=== PATIENT | male | born 2005 | race Caucasian/White ===

== ENCOUNTER 2024-10-17 23:21 | Emergency (ER) | payer OTHER, MEDICAID, SELFPAY ==
--- NOTE | ~2024-10-17 | US_ITS ---
CLINICAL HISTORY: PAIN AND SWELLING US Scrotum with Doppler Comparison: None provided Findings: Right testicle normal echotexture, 4.6 x 2.3 x 3.6 cm. Left testicle normal echotexture, 5.2 x 2.5 x 2.6 cm. Normal color flow and arterial/venous spectral tracing of the right testicle. Mild asymmetric hyperemia of the left testicle Normal epididymides. Small complex left hydrocele IMPRESSION: Asymmetric hyperemia of the left testicle concerning for possible orchitis. This document has been electronically signed by: Bala Gonzalez MD, PHD on 10/18/2024 01:52:25
[2024-10-17 23:32] VITALS: BP 142/90; PULSE 106; O2SAT 99
[2024-10-17 23:40] VITALS: BP 124/87; PULSE 90; RESP 16; TEMP 36.7; O2SAT 98; BMI 28.4
--- NOTE | 2024-10-17 23:48 | ED.MALEGU ---
HPI - Male Genitourinary General Chief complaint: Urogenital-Male Stated complaint: Testicular Pain Time Seen by Provider: 10/17/24 23:37 Source: patient and family Mode of arrival: ambulatory Limitations: no limitations History of Present Illness ED Provider: Francois JULIAN HPI Narrative: The patient is a 18-year-old male presenting to the ED for evaluation of atraumatic testicular pain which began yesterday. The patient denies associated fever/chills, nausea, vomiting, erythema, penile lesions, or urethral discharge. The patient reports he is not sexually active and never has been. The patient denies masturbation or other manipulation of the penis or testicles prior to onset of symptoms. The patient denies similar previous symptoms. Patient reports he noted the left testicle was hanging lower than the right which is not normal for him. Patient reported symptoms to his mother who activated EMS for transport to the ED. Related Data Previous Rx's ?Medication ?Instructions ?Recorded acetaminophen 500 mg capsule 1,000 mg (2 x 500 mg) PO .q8 PRN 10/18/24 fever or pain #30 caps ibuprofen 600 mg tablet 600 mg PO Q8H PRN fever or pain 10/18/24 #30 tabs Allergies Allergy/AdvReac Type Severity Reaction Status Date / Time No Known Allergies Allergy Unverified 10/17/24 23:41 Review of Systems Review of Systems: Yes all other systems are reviewed and are negative PMFSH Social History Social History Advance Directives: No Advance Directives Information Provided: Yes Physical Exam Vital Signs: Vital Signs: Last Vital Signs Temp 98.1 F 10/17/24 23:40 Pulse 90 10/17/24 23:40 Resp 16 10/17/24 23:40 BP 124/87 10/17/24 23:40 Pulse Ox 98 10/17/24 23:40 O2 Del Method Room Air 10/17/24 23:40 BMI result Body Mass Index 28.4 CONSTITUTIONAL: The patient appears non-toxic, well nourished and in no acute distress. Vital signs as documented. HEAD: Atraumatic, normocephalic. EYES: EOMs grossly intact, pupils equal, conjunctiva clear, no exudate. ENT: Nares patent, no discharge. Airway patent, no audible stridor, visible mucosa is pink and moist without noted lesions. NECK: trachea is midline, no obvious masses or gross abnormalities. CHEST: Symmetric movement, normal appearance. LUNGS: Non-labored work of breathing. CARDIAC: No evidence of hypoperfusion. ABDOMEN: Nondistended, no obvious injury. : There is mild swelling noted of the left testicle and epididymis, with mild tenderness, no associated scrotal erythema, no evidence of abscess. No penile lesions or urethral drainage noted. There is no inguinal mass or tenderness appreciated bilaterally. EXTREMITIES: Moves all extremities spontaneously without reported pain. No obvious injury or deformity noted. NEURO: Alert and oriented x3, CN II-XII appear grossly intact. Cerebellar Functioning grossly intact. Speech clear and appropriate. SKIN: Warm, dry, color appropriate. No rashes or lesions noted. Medical Decision Making Medical Decision Making MDM Narrative: 12:23 AM 10/18/2024 (Bryan JULIAN): Patient is a 18-year-old non sexually active male presenting to the ED for evaluation of atraumatic onset of scrotal pain and tenderness which began on . The patient reports swelling of the left testicle but also reports some pain in the right testicle. The patient in the ED is nontoxic appearing, appears in no acute distress. Exam reveals mild swelling of the left testicle and supporting structures, consistent with hydrocele versus varicocele. The patient has no other acute findings on exam. The patient will be sent for urinalysis and we will obtain testicular ultrasound to evaluate for torsion versus hydrocele versus varicocele. 2:10 AM 10/18/2024 (Bryan JULIAN): The patient's ultrasound has resulted and shows no testicular torsion. There is a small complex left hydrocele. There was also asymmetric hyperemia of the left testicle concerning for possible orchitis. The patient has no fever, no dysuria, urinalysis is negative for infection or other acute finding. Patient is not sexually active, no concern for STI. Given the patient's reassuring exam, lack of sexual activity, and no UTI on urinalysis, bacterial orchitis is very unlikely and patient is likely suffering from left hydrocele with possible viral orchitis. Patient will be treated with supportive care, and discharged to follow up with PCP. Admission/Observation Consideration of admission/observation: Escalation of care including admission/observation considered Lab Data Labs: Lab Results 10/18/24 Range/Units 00:44 Urine Color Yellow Urine Appearance Clear Urine pH 7.0 (5.0-9.0) Ur Specific [place] <= 1.005 (1.005-1.025) Urine Protein Negative (Neg-Trace) mg/dL Urine Glucose (UA) Negative (Negative) mg/dL Urine Ketones Negative (Negative) mg/dL Urine Blood Negative (Negative) Urine Nitrite Negative (Negative) Ur Leukocyte Esterase Negative (Negative) Radiology Impression Discussion of test interpretation with radiology: I have reviewed the radiologist's reading. Radiologist Impression: CLINICAL HISTORY: PAIN AND SWELLING US Scrotum with Doppler Comparison: None provided Findings: Right testicle normal echotexture, 4.6 x 2.3 x 3.6 cm. Left testicle normal echotexture, 5.2 x 2.5 x 2.6 cm. Normal color flow and arterial/venous spectral tracing of the right testicle. Mild asymmetric hyperemia of the left testicle Normal epididymides. Small complex left hydrocele IMPRESSION: Asymmetric hyperemia of the left testicle concerning for possible orchitis. This document has been electronically signed by: Bala Gonzalez MD, PHD on 10/18/2024 01:52:25 Discharge Plan Discharge Clinical Impression: Hydrocele, left, Viral orchitis Patient Disposition: Home, Self-Care Instructions: Testicle Pain (ED), Orchitis (ED) Additional Instructions: Thank you for choosing [facility]'s Emergency Department for your care today. At this time there is no indication for admission to the hospital or continued ED observation, and it is safe to discharge you home. Thankfully your ultrasound shows no evidence of torsion, and your urinalysis shows no evidence of a urinary tract infection. Your ultrasound today shows that your testicular pain is likely secondary to a collection of fluid in the vessels supporting your left testicle, known as a hydrocele. Your ultrasound also showed increased blood flow to the left testicle compared to the right, concerning for possible inflammation/infection of your testicle, this is a condition known as orchitis. Based on your history and presentation, as well as your reassuring urinalysis, this orchitis is likely caused by a viral infection and does not require antibiotics. You may take alternating (staggered) doses of ibuprofen 600mg and Tylenol 1000mg every 4 hours as needed for any additional pain. Please wear supportive underwear (briefs instead of boxers), stay well hydrated, and get plenty of rest. Please follow up with your primary care physician for re-evaluation, additional management of your symptoms, and continued preventative care. If you do not have a primary care physician, please call the [facility] at [phone] to establish a new primary care physician. While waiting to establish your new primary care physician, you can call our [facility] at [phone] for non-emergency needs. Please return to the emergency department if you develop a severe or sudden change in your symptoms, a fever over 100.4 that does not improve with Tylenol or Ibuprofen, recurrent vomiting, or any other new or worsening symptoms or concerns. Prescriptions: New acetaminophen 500 mg capsule 1,000 mg PO .q8 PRN (Reason: fever or pain) Qty: 30 0RF ibuprofen 600 mg tablet 600 mg PO Q8H PRN (Reason: fever or pain) Qty: 30 0RF Print Language: Portuguese
[2024-10-18 00:52] LABS: Appearance Urine Clear; Glucose Urine UA Negative (Negative); PH 7.0 (5.0-9.0); Specific Gravity - Urine <= 1.005 (1.005-1.025)
--- OUTSIDE RECORDS SUMMARY | 2024-10-18 01:03 | XMS_ITS | Encounter Summary ---
Author Organization [facility] Address [address] [place] [address] Phone Care Team Providers Care Burnishing Machine Operator Name Role Phone Jess Archer POLITICAL SCIENCE RESEARCH ASSISTANT Primary Care Provider Un available Encounter Details Date Type Department Care Team (Late st Contact Info) Description 11/06/2014 Documentation [facility] [address] [place], [place] [phone] Family Medicine, Physician [address] [place] [address] Social History Tobacco Use Types Packs/Day Years Used Date Smoking Tobacco: Never Assessed Sex and Gender Information Value Date Recorded Sex Assigned at Not on file Legal Sex Male 5:22 PM EDT Gender Identity Not on file Sexual Orientation Not on file documented as of this encounter Plan of Treatment Not on file documented as of this encounter Visit Diagnoses Not on filedocumented in this encounter Care Teams Burnishing Machine Operator Relationship Specialty Start Date End Date Jess Archer NP PCP - General 09/21/16 12/18/23 documented as of this encounter
--- OUTSIDE RECORDS SUMMARY | 2024-10-18 01:03 | XMS_ITS | Encounter Summary ---
Author Organization [facility] Address [address] [place] [address] Phone Care Team Providers Care Nylon Mender Name Role Phone Jess Archer TELE RN Primary Care Provider Un available Encounter Details Date Type Department Care Team (Late st Contact Info) Description 05/10/2011 Documentation [facility] [address] [place], [place] [phone] Family Medicine, Physician [address] [place] [address] Social History Tobacco Use Types Packs/Day Years [...] on filedocumented in this encounter Care Teams Nylon Mender Relationship Specialty Start Date End Date Jess Archer NP PCP - General 09/21/16 12/18/23 documented as of this encounter
--- OUTSIDE RECORDS SUMMARY | 2024-10-18 01:03 | XMS_ITS | Encounter Summary ---
Author Organization [facility] Address [address] [place] [address] Phone Care Team Providers Care Validation Intern Name Role Phone Jess Archer CANDY MAKER HELPER Primary Care Provider Un available Encounter Details Date Type Department Care Team (Late st Contact Info) Description 10/03/2012 Documentation [facility] [address] [place], [place] [phone] Family Medicine, Physician [address] [place] [address] Social History Tobacco Use Types Packs/Day Years [...] on filedocumented in this encounter Care Teams Validation Intern Relationship Specialty Start Date End Date Jess Archer NP PCP - General 09/21/16 12/18/23 documented as of this encounter
--- OUTSIDE RECORDS SUMMARY | 2024-10-18 01:03 | XMS_ITS | Clinical Summary ---
Author Organization [facility] Address [address] [place] [address] Phone Care Team Providers Care Physical Therapist Name Role Phone Unavailable Primary Care Provider Unavailabl e Medications QVAR 80 MCG/ACT inhalerIndicati ons:Asthma, unspecified asthma severity, unspecified whether complicated, unspecified whether persistent INHALE 2 PUFF BY INHALATION ROUTE 2 TIMES EVERY DAY 1 Units 11 7 Active FLUoxetine 20 MG capsule Take by mouth once daily. 0 8 Active guanFACINE 2 MG tablet Take 2 mg by mouth 2 (two) times a day. 1 8 Active haloperidol 2 MG tablet TAKE 1/2 TABLET EVERY MORNING AND 1 TABLET TWICE DAILY 0 8 Active VYVANSE 50 MG capsule Take 50 mg by mouth once daily. 0 8 Active Pediatric Multivitamins-F l (MULTIVITAMIN/F LUORIDE) 1 MG chewable tablet Chew. 7 Active traZODone 50 MG tablet Take 50 mg by mouth nightly. 1 8 Active VYVANSE 40 MG capsule Take 40 mg by mouth once daily. 0 8 Active [place]-3 Fatty Acids (FISH OIL CONCENTRATE) 1000 MG capsule Take by mouth. 7 Active albuterol (2.5 MG/3ML) 0.083% nebulizer solution ALBUTEROL SULFATE; inhale 3 milliliter by NEBULIZATION route every 4 - 6 hours as needed; 2.5 MG/3 ML (0.083 %); 07/06/2016; Active 7 Active Immunizations Immunization Administration Dates Next Due DTaP / Hep B / IPV 05/31/2005,03/22/2005, 005 DTaP 5 12/09/2008,03/14/2006 H1N1 12/09/2008 HPV Vaccine 9 Valent 07/06/2016 Hep A, ped/adol 05/29/2006,11/29/2005 Hep B, ped/adol 2004 Hib (HbOC) 03/14/2006,01/30/2005 Hib (PRP-T) 05/31/2005,03/22/2005 IPV 12/09/2008 Influenza Split 11/01/2011,09/27/2010,12/22/2009 Influenza, injectable, quadrivalent 11/30/2016 Influenza, injectable, quadr ivalent, preservative free 01/03/2016,11/01/2014,11/16/2013,12/03 Influenza, injectable, trivalent 008,2006,03/14/2006,11/29 MMR 12/09/2008 MMRV 11/29/2005 Meningococcal Conj (Menactra) MCV4P 07/06/2016 Pneumococcal Conjugate 03/14/2006,2005,03/22/2005,01/30 Tdap 07/06/2016 Varicella 12/09/2008 Family History Relation Name Status Comments Father Father: Migrain es, Strabismus, Asthma, IBS, Obesity Mother Mother: Migrain es, Obesity, Hyperlipidemia, cholesterol, migraines Other No family histo ry of Sudden /CT under age 55, No family history of CVA (Stroke), No family history of Dental caries, No family history of Heart disease Paternal Grandmother Paterna l grandmother: Mouth Social History Tobacco Use Types Packs/Day Years Used Date Smoking Tobacco: Never Assessed Sex and Gender Information Value Date Recorded Sex Assigned at Not on file Legal Sex Male 5:22 PM EDT Gender Identity Not on file Sexual Orientation Not on file Last Filed Vital Signs Vital Sign Reading Time Taken Comments Blood Pressure 111/58 07/06/2016 12:00 AM EDT Pulse 120 07/06/2016 12:00 AM EDT Temperature 36.9 C (98.4 F) 07/06/2016 12:00 AM EDT Respiratory Rate - - Oxygen Saturation 100% 05/14/2016 12: 00 AM EDT Inhaled Oxygen Concentration - - Weight 30.8 kg (67 lb 12.8 oz) 05/26/20 17 12:00 AM EDT Height 134 cm (4' 4.75 ) 07/06/2016 12: 00 AM EDT Body Mass Index 17.13 07/06/2016 12:00 AM EDT Body Mass Index Percentile 42.53% 07/06 12:00 AM EDT Growth Chart: [facility] [facility]Boys, 2-2 0 Years[place] Plan of Treatment Health Maintenance Due Date Last Done Comments Men B Vaccine (1 of 2 - Standard) 2020 Influenza Vaccines (#1) 2024 01/30/20, 02/09/2021, 01/15/2020, Additional history exists COVID-19 Vaccine (2024-2 6 season) 2024 02/09/2021, 07/14/2020, 06/23/2020 DTaP,Tdap,and Td Vaccines (8 - Td or Tdap) 12/14/2027 12/13/2017, 07/06/2016, 12/09/2008, Additional history exists Hepatitis B Vaccines Completed 05/31/2005, 03/22/2005, 01/30/2005, Additional history exists HIB Vaccines Completed 03/14/2006, 05/13, 03/22/2005, Additional history exists Pneumococcal Vaccine Completed 03/14/2006, 05/31/2005, 03/22/2005, Additional history exists Hepatitis A Vaccines Completed 05/29/2006, 11/30/19 06 IPV Vaccines Completed 12/09/2008, 05/13, 03/22/2005, Additional history exists MMR Vaccines Completed 12/09/2008, 11/29/2005 Varicella Vaccines Completed 12/09/2008, 11/29/2005 HPV Vaccines Completed 12/25/2018, 1103/2017, 07/06/2016 Meningococcal Vaccine Completed 04/25/2022 , 12/13/2017, 07/06/2016 Insurance [facility] NON PCC
--- OUTSIDE RECORDS SUMMARY | 2024-10-18 01:03 | XMS_ITS | Encounter Summary ---
Author Organization [facility] Address [address] [place] [address] Phone Care Team Providers Care Film Touch Up Inspector Name Role Phone Jess Archer METAL FURNITURE ASSEMBLY SUPERVISOR Primary Care Provider Un available Encounter Details Date Type Department Care Team (Late st Contact Info) Description 05/15/2010 Documentation [facility] [address] [place], [place] [phone] Family Medicine, Physician [address] [place] [address] Social History Tobacco Use Types Packs/Day Years [...] on filedocumented in this encounter Care Teams Film Touch Up Inspector Relationship Specialty Start Date End Date Jess Archer NP PCP - General 09/21/16 12/18/23 documented as of this encounter
--- OUTSIDE RECORDS SUMMARY | 2024-10-18 01:03 | XMS_ITS | Encounter Summary ---
Author Organization [facility] Address [address] [place] [address] Phone Care Team Providers Care Terrazzo Helper Name Role Phone Jess Archer CAMPGROUND ATTENDANT Primary Care Provider Un available Encounter Details Date Type Department Care Team (Late st Contact Info) Description 07/24/2016 Documentation [facility] [address] [place], [place] [phone] Family Medicine, Physician [address] [place] [address] Social History Tobacco Use Types Packs/Day Years [...] on filedocumented in this encounter Care Teams Terrazzo Helper Relationship Specialty Start Date End Date Jess Archer NP PCP - General 09/21/16 12/18/23 documented as of this encounter
--- OUTSIDE RECORDS SUMMARY | 2024-10-18 01:03 | XMS_ITS | Encounter Summary ---
Author Organization [facility] Address [address] [place] [address] Phone Care Team Providers Care Watch Engine Operator Name Role Phone Jess Archer PATTERNMAKER BENCH Primary Care Provider Un available Encounter Details Date Type Department Care Team (Late st Contact Info) Description 06/25/2016 Documentation [facility] [address] [place], [place] [phone] Family Medicine, Physician [address] [place] [address] Social History Tobacco Use Types Packs/Day Years [...] on filedocumented in this encounter Care Teams Watch Engine Operator Relationship Specialty Start Date End Date Jess Archer NP PCP - General 09/21/16 12/18/23 documented as of this encounter
--- OUTSIDE RECORDS SUMMARY | 2024-10-18 01:03 | XMS_ITS | Encounter Summary ---
Author Organization [facility] Address [address] [place] [address] Phone Care Team Providers Care Delivery Specialist Name Role Phone Jess Archer INSTRUMENTATION ENGINEER Primary Care Provider Un available Encounter Details Date Type Department Care Team (Late st Contact Info) Description 04/10/2010 Documentation [facility] [address] [place], [place] [phone] Family Medicine, Physician [address] [place] [address] Social History Tobacco Use Types Packs/Day Years [...] on filedocumented in this encounter Care Teams Delivery Specialist Relationship Specialty Start Date End Date Jess Archer NP PCP - General 09/21/16 12/18/23 documented as of this encounter
--- OUTSIDE RECORDS SUMMARY | 2024-10-18 01:03 | XMS_ITS | Encounter Summary ---
Author Organization [facility] Address [address] [place] [address] Phone Care Team Providers Care Floor Supervisor Name Role Phone Jess Archer ATHLETIC DIRECTOR Primary Care Provider Un available Encounter Details Date Type Department Care Team (Late st Contact Info) Description 05/29/2009 Documentation [facility] [address] [place], [place] [phone] Family Medicine, Physician [address] [place] [address] Social History Tobacco Use Types Packs/Day Years [...] on filedocumented in this encounter Care Teams Floor Supervisor Relationship Specialty Start Date End Date Jess Archer NP PCP - General 09/21/16 12/18/23 documented as of this encounter
--- OUTSIDE RECORDS SUMMARY | 2024-10-18 01:03 | XMS_ITS | Encounter Summary ---
Author Organization [facility] Address [address] [place] [address] Phone Care Team Providers Care Coat Room Attendant Name Role Phone Jess Archer MEDICAL STAFF COORDINATOR Primary Care Provider Un available Encounter Details Date Type Department Care Team (Late st Contact Info) Description 08/22/2015 Documentation [facility] [address] [place], [place] [phone] Family Medicine, Physician [address] [place] [address] Social History Tobacco Use Types Packs/Day Years [...] on filedocumented in this encounter Care Teams Coat Room Attendant Relationship Specialty Start Date End Date Jess Archer NP PCP - General 09/21/16 12/18/23 documented as of this encounter
--- OUTSIDE RECORDS SUMMARY | 2024-10-18 01:03 | XMS_ITS | Encounter Summary ---
Author Organization [facility] Address [address] [place] [address] Phone Care Team Providers Care Smoke Room Operator Name Role Phone Jess Archer CERTIFIED NURSE AIDE Primary Care Provider Un available Encounter Details Date Type Department Care Team (Late st Contact Info) Description 11/10/2012 Documentation [facility] [address] [place], [place] [phone] Family Medicine, Physician [address] [place] [address] Social History Tobacco Use Types Packs/Day Years [...] on filedocumented in this encounter Care Teams Smoke Room Operator Relationship Specialty Start Date End Date Jess Archer NP PCP - General 09/21/16 12/18/23 documented as of this encounter
--- OUTSIDE RECORDS SUMMARY | 2024-10-18 01:03 | XMS_ITS | Encounter Summary ---
Author Organization [facility] Address [address] [place] [address] Phone Care Team Providers Care Suspender Cutter Name Role Phone Jess Archer PERFORMANCE ANALYST Primary Care Provider Un available Encounter Details Date Type Department Care Team (Late st Contact Info) Description 05/10/2011 Documentation [facility] [address] [place], [place] [phone] Family Medicine, Physician [address] [place] [address] Social History Tobacco Use Types Packs/Day Years [...] on filedocumented in this encounter Care Teams Suspender Cutter Relationship Specialty Start Date End Date Jess Archer NP PCP - General 09/21/16 12/18/23 documented as of this encounter
--- OUTSIDE RECORDS SUMMARY | 2024-10-18 01:03 | XMS_ITS | Encounter Summary ---
Author Organization [facility] Address [address] [place] [address] Phone Care Team Providers Care Director Data Analytics Name Role Phone Jess Archer ON AIR HOST Primary Care Provider Un available Encounter Details Date Type Department Care Team (Late st Contact Info) Description 05/12/2015 Documentation [facility] [address] [place], [place] [phone] Family Medicine, Physician [address] [place] [address] Social History Tobacco Use Types Packs/Day Years [...] on filedocumented in this encounter Care Teams Director Data Analytics Relationship Specialty Start Date End Date Jess Archer NP PCP - General 09/21/16 12/18/23 documented as of this encounter
--- OUTSIDE RECORDS SUMMARY | 2024-10-18 01:03 | XMS_ITS | Encounter Summary ---
Author Organization [facility] Address [address] [place] [address] Phone Care Team Providers Care Core Winder Machine Operator Name Role Phone Jess Archer RN PERITONEAL DIALYSIS Primary Care Provider Un available Encounter Details Date Type Department Care Team (Late st Contact Info) Description 09/27/2016 Conversion Encounter [facility] - [address] [address] Social History Tobacco Use Types Packs/Day Years [...] on filedocumented in this encounter Care Teams Core Winder Machine Operator Relationship Specialty Start Date End Date Jess Archer NP PCP - General 09/21/16 12/18/23 documented as of this encounter
--- OUTSIDE RECORDS SUMMARY | 2024-10-18 01:03 | XMS_ITS | Encounter Summary ---
Author Organization [facility] Address [address] [place] [address] Phone Care Team Providers Care Packaging Mechanic Name Role Phone Jess Archer NP Primary Care Provider Un available Reason for Visit * Reason Comments Med Refill Encounter Details Date Type Department Care Team (Late st Contact Info) Description 12/21/2016 Refill [facility] [address] [place] [address] Madeline Puckett MD [address] [place] [address] Asthma, unspecified asthma severity, unspecified whether complicated, unspecified whether persistent (Primary Dx) Social History Tobacco Use Types Packs/Day Years Used Date Smoking Tobacco: Never Assessed Sex and Gender Information Value Date Recorded Sex Assigned at Not on file Legal Sex Male 5:22 PM EDT Gender Identity Not on file Sexual Orientation Not on file documented as of this encounter Miscellaneous Notes * Telephone Encounter - Jess Archer NP - 12/21/2016 7:17 PM EST This is a daily med - he has been on for a while, will refill today as requested - JMT * Telephone Encounter - Magy Rizzo LPN - 12/21/2016 2:06 PM EST Pharm fax refill request qvar EH documented in this encounter Plan of Treatment Not on file documented as of this encounter Visit Diagnoses Diagnosis Asthma, unspecified asthma severity, unspecified whether complicated, unspecified whether persistent- Primary documented in this encounter Care Teams Packaging Mechanic Relationship Specialty Start Date End Date Jess Archer NP PCP - General 09/21/16 12/18/23 documented as of this encounter
--- OUTSIDE RECORDS SUMMARY | 2024-10-18 01:03 | XMS_ITS | Encounter Summary ---
Author Organization [facility] Address [address] [place] [address] Phone Care Team Providers Care Foreign Exchange Student Coordinator Name Role Phone Jess Archer SUPERVISOR CHASSIS ASSEMBLY Primary Care Provider Un available Encounter Details Date Type Department Care Team (Late st Contact Info) Description 11/03/2013 Documentation [facility] [address] [place], [place] [phone] Family Medicine, Physician [address] [place] [address] Social History Tobacco Use Types Packs/Day Years [...] on filedocumented in this encounter Care Teams Foreign Exchange Student Coordinator Relationship Specialty Start Date End Date Jess Archer NP PCP - General 09/21/16 12/18/23 documented as of this encounter
--- OUTSIDE RECORDS SUMMARY | 2024-10-18 01:03 | XMS_ITS | Encounter Summary ---
Author Organization [facility] Address [address] [place] [address] Phone Care Team Providers Care Redrawer Name Role Phone Jess Archer NEON ELECTRICIAN Primary Care Provider Un available Encounter Details Date Type Department Care Team (Late st Contact Info) Description 08/02/2016 Documentation [facility] [address] [place], [place] [phone] Family Medicine, Physician [address] [place] [address] Social History Tobacco Use Types Packs/Day Years [...] on filedocumented in this encounter Care Teams Redrawer Relationship Specialty Start Date End Date Jess Archer NP PCP - General 09/21/16 12/18/23 documented as of this encounter
--- OUTSIDE RECORDS SUMMARY | 2024-10-18 01:03 | XMS_ITS | Encounter Summary ---
Author Organization [facility] Address [address] [place] [address] Phone Care Team Providers Care Development Coach Name Role Phone Jess Archer ELECTRIC MOTOR CONTROLS ASSEMBLER Primary Care Provider Un available Encounter Details Date Type Department Care Team (Late st Contact Info) Description 08/07/2016 Documentation [facility] [address] [place], [place] [phone] Family Medicine, Physician [address] [place] [address] Social History Tobacco Use Types Packs/Day Years [...] on filedocumented in this encounter Care Teams Development Coach Relationship Specialty Start Date End Date Jess Archer NP PCP - General 09/21/16 12/18/23 documented as of this encounter
--- OUTSIDE RECORDS SUMMARY | 2024-10-18 01:03 | XMS_ITS | Encounter Summary ---
Author Organization [facility] Address [address] [place] [address] Phone Care Team Providers Care Ash Pit Worker Name Role Phone Jess Archer COMMERCIAL LOAN OFFICER Primary Care Provider Un available Encounter Details Date Type Department Care Team (Late st Contact Info) Description 02/23/2015 Documentation [facility] [address] [place], [place] [phone] Family Medicine, Physician [address] [place] [address] Social History Tobacco Use Types Packs/Day Years [...] on filedocumented in this encounter Care Teams Ash Pit Worker Relationship Specialty Start Date End Date Jess Archer NP PCP - General 09/21/16 12/18/23 documented as of this encounter
--- OUTSIDE RECORDS SUMMARY | 2024-10-18 01:03 | XMS_ITS | Encounter Summary ---
Author Organization [facility] Address [address] [place] [address] Phone Care Team Providers Care Credit Collections Rep Name Role Phone Jess Archer INSTRUCTOR PRIVATE Primary Care Provider Un available Encounter Details Date Type Department Care Team (Late st Contact Info) Description 08/07/2016 Documentation [facility] [address] [place], [place] [phone] Family Medicine, Physician [address] [place] [address] Social History Tobacco Use Types Packs/Day Years [...] on filedocumented in this encounter Care Teams Credit Collections Rep Relationship Specialty Start Date End Date Jess Archer NP PCP - General 09/21/16 12/18/23 documented as of this encounter
--- OUTSIDE RECORDS SUMMARY | 2024-10-18 01:03 | XMS_ITS | Encounter Summary ---
Author Organization [facility] Address [address] [place] [address] Phone Care Team Providers Care Family Readiness Support Assistant Name Role Phone Jess Archer GLUING MACHINE OPERATOR Primary Care Provider Un available Encounter Details Date Type Department Care Team (Late st Contact Info) Description 05/15/2016 Documentation [facility] [address] [place], [place] [phone] Family Medicine, Physician [address] [place] [address] Social History Tobacco Use Types Packs/Day Years [...] on filedocumented in this encounter Care Teams Family Readiness Support Assistant Relationship Specialty Start Date End Date Jess Archer NP PCP - General 09/21/16 12/18/23 documented as of this encounter
--- OUTSIDE RECORDS SUMMARY | 2024-10-18 01:03 | XMS_ITS | Encounter Summary ---
Author Organization [facility] Address [address] [place] [address] Phone Care Team Providers Care Director Social Name Role Phone Jess Archer OPEN HEARTH STOCKYARD SUPERVISOR Primary Care Provider Un available Encounter Details Date Type Department Care Team (Late st Contact Info) Description 06/22/2014 Documentation [facility] [address] [place], [place] [phone] Family Medicine, Physician [address] [place] [address] Social History Tobacco Use Types Packs/Day Years [...] filedocumented in this encounter Care Teams Director Social Relationship Specialty Start Date End Date Jess Archer NP PCP - General 09/21/16 12/18/23 documented as of this encounter
--- OUTSIDE RECORDS SUMMARY | 2024-10-18 01:03 | XMS_ITS | Encounter Summary ---
Author Organization [facility] Address [address] [place] [phone] Phone Care Team Providers Care Tractor Expert Name Role Phone Jess Archer CONTENT STRATEGIST Primary Care Provider Un available Encounter Details Date Type Department Care Team (Late st Contact Info) Description 08/05/2013 Documentation [facility] [address] [place], [place] [phone] Family Medicine, Physician [address] [place] [address] Social History Tobacco Use Types Packs/Day Years [...] on filedocumented in this encounter Care Teams Tractor Expert Relationship Specialty Start Date End Date Jess Archer NP PCP - General 09/21/16 12/18/23 documented as of this encounter
--- OUTSIDE RECORDS SUMMARY | 2024-10-18 01:03 | XMS_ITS | Encounter Summary ---
Author Organization [facility] Address [address] [place] [address] Phone Care Team Providers Care Compounder Name Role Phone Jess Archer MESSAGING ARCHITECT Primary Care Provider Un available Encounter Details Date Type Department Care Team (Late st Contact Info) Description 02/16/2014 Documentation [facility] [address] [place], [place] [phone] Family Medicine, Physician [address] [place] [address] Social History Tobacco Use Types Packs/Day Years [...] on filedocumented in this encounter Care Teams Compounder Relationship Specialty Start Date End Date Jess Archer NP PCP - General 09/21/16 12/18/23 documented as of this encounter
[2024-10-18 03:06] VITALS: BP 125/76; PULSE 90; RESP 16; TEMP 36.7; O2SAT 98
[2024-10-18 03:30] VITALS: BP 125/76; PULSE 90; RESP 16; TEMP 36.7; O2SAT 98
== END 2024-10-18 03:15 | disposition home or self-care (01) ==
PROVIDERS: Physician Assistant; Emergency Provider Emergency Medicine
DX: N50.812 Left testicular pain (principal); N43.3 Hydrocele, unspecified; N45.2 Orchitis; B97.89 Other viral agents as the cause of diseases classified elsewhere; R10.2 Pelvic and perineal pain
CPT/HCPCS: 76870; 81003; 93975; 99283; 99284

== ENCOUNTER → 2024-10-17 23:40 | Outpatient (BNV) | payer OTHER, MEDICAID, SELFPAY | PROVIDERS: Emergency Provider Emergency Medicine; Visit Provider General Practice | DX: N50.819 Testicular pain, unspecified (principal) | CPT/HCPCS: 76870 ==

== ENCOUNTER → 2024-10-18 00:26 | Outpatient (BNV) | payer OTHER, MEDICAID, SELFPAY | PROVIDERS: Emergency Provider Emergency Medicine; Visit Provider General Practice | DX: N50.819 Testicular pain, unspecified (principal) | CPT/HCPCS: 93975 ==